=== PATIENT | female | born 1975 | race Asian ===

== ENCOUNTER 2025-04-04 12:41 | Emergency (ER) | payer OTHER ==
[~2025-04-04] VITALS: Ht 157.5 cm; Wt 55.8 kg
[2025-04-04 12:52] VITALS: BP 136/90; PULSE 74; RESP 20; TEMP 97.9; O2SAT 99
[2025-04-04] MEDS ORDERED: AMLO2.5T4 PO (12:54)
--- NOTE | 2025-04-04 12:55 | ERN ---
ED Note History of Present Illness Stated Complaint: MEDICATION REFILL,MEDICAL CLEARANCE,HTN Chief Complaint: Medical Clearance Time Seen by MD: 12:46 Dictation: PATIENT IS A 49-YEAR-OLD FEMALE COMING IN WITH BORDER PATROL WITH COMPLAINTS OF RUNNING OUT OF HER AMLODIPINE TO MG TABLETS TWO DAYS AGO AND A HISTORY OF HYPERTENSION. SHE DENIES CHEST PAIN BACK PAIN NO SOB. SHE TAKES AMLODIPINE 2 MG TABLETS. NO PRIMARY CARE DOCTOR Past Medical History Past Medical History: Hypertension Surgical History: Other RN Note Reviewed/Agreed w/PFSH: Yes Review of System Dictation CONSTITUTIONAL: NEGATIVE EXCEPT FOR HPI HEAD/FACE: NEGATIVE EXCEPT FOR HPI EENT: NEGATIVE EXCEPT FOR HPI RESPIRATORY: NEGATIVE EXCEPT FOR HPI GASTROINTESTINAL/ABDOMINAL: NEGATIVE EXCEPT FOR HPI GENITOURINARY: NEGATIVE EXCEPT FOR HPI MUSCULOSKELETAL: NEGATIVE EXCEPT FOR HPI INTEGUMENTARY: NEGATIVE EXCEPT FOR HPI NEUROLOGICAL/PSYCH: NEGATIVE EXCEPT FOR HPI HEMATOLOGIC/LYMPHATIC: NEGATIVE EXCEPT FOR HPI ALL SYSTEMS NEGATIVE, EXCEPT NOTED ABOVE. 13 POINT REVIEW OF SYSTEMS ASSESSED AND ALL NEGATIVE EXCEPT FOR ABOVE. Initial Vital Sign VS Vital Signs Date Time Temp Pulse Resp B/P (MAP) Pulse Ox O2 Delivery O2 Flow Rate FiO2 04/04/25 12:44 97.9 74 20 136/90 99 Room Air 0 Physical Exam Dictation VITAL SIGNS REVIEWED GENERAL APPEARANCE: ALERT, ORIENTED X 3, NO ACUTE DISTRESS, WELL DEVELOPED, NOURISHED. HEAD AND FACE: NON-TRAUMATIC. EYES: PERRL, PINK CONJUNCTIVAS, EYELID NO TRAUMA, ANTERIOR CHAMBER WITH ARCUS SENILIS. EARS: PINNAS INTACT AND NO SIGNS OF TRAUMA OR ERYTHEMA EAR CANALS CLEAR AND NO DISCHARGE TM NO ERYTHEMA NOSE: NO DISCHARGE, NO BLEEDING. OROPHARYNX: MOUTH NORMAL, TONGUE PINK, PHARYNX CLEAR,NO ERYTHEMA, TONSILS NO EXUDATES, NO ABSCESSES NOTED, MUCOUS MEMBRANE MOIST NECK: SUPPLE, NON-TENDER, NO THYROMEGALY, NO MASSES, NO JVD, NO BRUITS BREAST:DEFERRED CHEST:NO TENDERNESS, NO CREPITUS, NO PARADOXICAL MOVEMENT, NO RETRACTIONS LUNGS:CLEAR, WELL-VENTILATED, SYMMETRIC, NO RALES, NO WHEEZING, NO RHONCHI, NO STRIDOR, GOOD BREATH SOUNDS BILATERALLY HEART: REGULAR RATE, REGULAR RHYTHM, NO MURMUR, NO GALLOPS VASCULAR: NO PERIPHERAL EDEMA, ABDOMEN: SOFT, POSITIVE BOWEL SOUNDS, NONDISTENDED, NO GUARDING, NONTENDER, NO REBOUND, NO MASSES NO HEPATOMEGALY, NO SPLENOMEGALY, NO WATERS'S SIGN, NO HERNIAS. RECTAL: DEFERRED GENITAL: DEFERRED NEUROLOGICAL: NORMAL SPEECH, MOTOR FUNCTION INTACT, SENSORY FUNCTION INTACT MUSCULOSKELETAL: NECK NONTENDER, FULL RANGE OF MOTION, BACK NONTENDER, FULL RANGE OF MOTION, EXTREMITIES: NONTENDER, FULL RANGE OF MOTION SKIN: COLOR PINK, DRY, NO TURGOR, NO RASH, NO LACERATIONS, NO ABRASIONS, NO CONTUSIONS. LYMPHATIC: DEFERRED Results (Laboratory/Radiology) Labs Reviewed?: Yes ED Course ED Course Vital Signs Date Time Temp Pulse Resp B/P (MAP) Pulse Ox O2 Delivery O2 Flow Rate FiO2 04/04/25 12:44 97.9 74 20 136/90 99 Room Air 0 1250/CURRENT BLOOD PRESSURE 136/90 IN TRIAGE. NO COMPLAINTS OF VOICE WE WILL GIVE A REFILL FOR AMLODIPINE PATIENT WILL BE DISCHARGED HOME WITH MEDICAL CLEARANCE FOR INCARCERATION AND TRAVEL. Medical Decision Making MDM MEDICAL DECISION-MAKING BASED ON HPI AND MEDICATION REFILL FOR AMLODIPINE MEDICAL CLEARANCE FOR INCARCERATION AND TRAVEL PATIENT GIVEN AMLODIPINE5 MG TO BE TAKEN Q.DAY DX & DISP Disposition: Discharge Departure Impression: Primary Impression: Hypertension, well controlled Additional Impressions: Medication refill, Medical clearance for incarceration Condition: Stable Scripts Amlodipine Besylate (Amlodipine Besylate) 2.5 Mg Tablet 1 TAB PO DAILY for 30 Days, #30 TAB 0 Refills Prov: [employer] APPLICATION ADMINISTRATOR 04/04/25 Additional Instructions: FOLLOW-UP WITH PRIMARY CARE PROVIDER IN 1 TO 2 DAYS. TAKE MEDICATIONS DIRECTED HERE IN THE EMERGENCY ROOM. OKAY TO CONTINUE HOME MEDICATIONS UNLESS OTHERWISE DISCUSSED DURING YOUR VISIT IN THE EMERGENCY ROOM TODAY. RETURN TO [facility] EMERGENCY ROOM IF SYMPTOMS WORSEN OR IF THERE IS NO IMPROVEMENT. CALL 911 IF YOU NEED IMMEDIATE ASSISTANCE. TAKE TYLENOL OR MOTRIN [id number] NEEDED AND IF NO CONTRAINDICATIONS ARE PRESENT. INCREASE ORAL HYDRATION. A WOUND CULTURE OR URINE CULTURE WAS ORDERED HERE IN THE EMERGENCY ROOM DEPARTMENT PLEASE FOLLOW-UP WITH PRIMARY CARE PROVIDER AND ADVISE THEM TO GET REPEAT PORTS FROM OUR FACILITY. IF YOU HAD ANY YANA WRAP/SPLINTS THAT WERE APPLIED HERE, PLEASE DO NOT REMOVE THEM UNTIL YOU SEE YOUR PRIMARY CARE OR SPECIALTY. TAKE AMLODIPINE DIRECTED DAILY FOR YOUR BLOOD PRESSURE. PATIENT IS MEDICALLY CLEARED FOR INCARCERATION AND TRAVEL Referrals: SELF,REFERRAL (PCP) Time of Disposition: 12:51 I have reviewed the case, and I agree with, Diagnosis and Plan FOREST JOIENR NP Apr 04, 2025 12:54
== END 2025-04-04 12:56 | disposition home or self-care (01) ==
LOC: EDH 12:41
DX: I10 Essential (primary) hypertension (principal); Z98.890 Other specified postprocedural states
CPT/HCPCS: 99282